=== PATIENT | female | born 1990 | race Caucasian/White ===

== ENCOUNTER 2016-06-19 17:59 | Inpatient (IN) | payer OTHER ==
[2016-06-19] MEDS ORDERED: MINERAL OIL 25 ML BOT ONE (18:56)
[2016-06-19] MEDS ORDERED: LACTATED RINGERS 1,000 ML ONE (18:56)
[2016-06-19] MEDS ORDERED: LIDOCAINE Viscous 2% 15 ML UDCUP ONE (18:56)
[2016-06-19] MEDS ORDERED: PUMP TUBING ONE (18:56)
[2016-06-19] MEDS ORDERED: OXYTOCIN 10 UNITS/ML VIAL ONE (18:56)
[2016-06-19] MEDS ORDERED: LIDOCAINE 1% (PRES FREE) 30 ML VIAL ONE (18:56)
[2016-06-19] MEDS ORDERED: IV START KIT ONE (18:56)
[2016-06-19] MEDS ORDERED: OXYTOCIN IN NS 500 ML IV ONE (18:57)
[2016-06-19] MEDS ORDERED: PENICILLIN G POTASSIUM 5 MMU VIAL ONE (18:57)
[2016-06-19] MEDS ORDERED: OXYTOCIN IN NS 334 ML IV PRN (18:58)
[2016-06-19] MEDS ORDERED: LACTATED RINGERS 1,000 ML IV PRN ×2 (18:58→20:07)
[2016-06-19] MEDS ORDERED: PENICILLIN G POTASSIUM 5 MMU in NS 0.9% (MINI-BAG PLUS) 100 ML IV ONE (19:00)
[2016-06-19] MEDS ORDERED: LACTATED RINGERS 1,000 ML IV SCH (19:00)
[2016-06-19 19:29] LABS: HEMATOCRIT 35.3 % (37.0-47.0); HEMOGLOBIN 11.2 gm/l (12.0-16.0); MEAN CELL VOLUME 83.6 fl (81.0-99.0); MEAN CORPUSCULAR HEMOGLOBIN 26.5 pg (27.0-31.0); MEAN CORPUSCULAR HGB CONC 31.7 g/dl (33.0-37.0); RED CELL DISTRIBUTION WIDTH 13.9 % (11.5-14.5)
[2016-06-19] MEDS ORDERED: OXYTOCIN IN NS 167 ML IV PRN (20:07)
[2016-06-19] MEDS ORDERED: MEASLES,MUMPS&RUBELLA VACCINE 0.5 ML VIAL SUB-Q V ONE (20:07)
[2016-06-19] MEDS ORDERED: SENNOSIDES 8.6 MG TABLET PO PRN (20:07)
[2016-06-19] MEDS ORDERED: MAGNESIUM HYDROXIDE 30 ML UDCUP PO PRN (20:07)
[2016-06-19] MEDS ORDERED: OXYCODONE HCL 5 MG TABLET PO PRN (20:07)
[2016-06-19] MEDS ORDERED: BENZOCAINE/MENTHOL 60 APPLIC/BOT TP PRN (20:07)
[2016-06-19] MEDS ORDERED: DIPHTH,PERTUSS(ACELL),TET VAC 0.5 ML VIAL IM V ONE (20:07)
[2016-06-19] MEDS ORDERED: DOCUSATE SODIUM 100 MG CAPSULE PO PRN (20:07)
[2016-06-19] MEDS ORDERED: IBUPROFEN 800 MG TABLET PO PRN (20:07)
[2016-06-19] MEDS ORDERED: LANOLIN 50 APPLIC/7G TUBE TP PRN (20:07)
[2016-06-19] MEDS ORDERED: CALCIUM CARBONATE 500 MG TAB.CHEW PO PRN (20:07)
[2016-06-19] MEDS ORDERED: OXYCODONE/ACETAMINOPHEN 5/325 MG TABLET PO PRN (20:07)
[2016-06-19] MEDS ORDERED: ACETAMINOPHEN 325 MG TABLET PO PRN (20:07)
--- NOTE | 2016-06-19 21:17 | PCMDEL ---
Delivery Note - Labor 1st stage (hr/min):: [id number] 2nd stage (hr/min):: 5min 3rd stage (hr/min):: 6min Total (hr/min):: [id number] Pushed (hr/min):: for about 3 contrx - Delivery Delivery (Date): 06/19/16 Delivery (Time): 19:39 Infant Gender: Male Weight: 8 lb 9 oz Length: 1 ft 9 in Presentation: Cephalic Position: OA Umbilical Cord: 3 Vessel Delayed Cord Clamping:: 2-3 min 1 Minute Total: 9 5 Minute Total: 9 Placenta:: complete EBL:: 200cc Perineum:: intact Suture:: none Anesthesia/Meds:: none Length ROM:: minutes Comments:: Pt had a strong urge to push shortly after AROM. Vretex came to quickly. Large amount clear fluid. Vertex delivered direct OA then restituted to LESLIE; right shoulder delivered first then baby was out, placed on maternal abdomen, dried and evaluated. He had excellent tone and cry. After FoB cut the cord, Valorie had some cramping and placenta delivered easily, followed by membranes. No tears. EBL minimal.
--- NOTE | 2016-06-19 21:31 | PCMAN ---
OB Admission Note - History : 3 Term: 2 : 0 Abortions (S&E): 0 Livin EDC:: 06/21/16 Gestational Age (weeks): 39 Days (#/7): 5 Admit Cervical Dilation:: 8-9 per global project manager Cervical Effacement (%):: 100 Admit Station:: -2 Admit Presentaton:: cephalic Membrane Status: Bulging Membranes Comment:: AROM performed on my first exam Labor Onset (Date): 06/19/16 Labor Onset (Time): 16:00 Contractions: Yes Contraction Frequency:: q2-3min Heart Rate:: 120 (category 1) Status:: good EFW:: 7-8lbs Summary of Course:: Uncomplicated . Normal Verify, 46 XY Pt admitted in advanced active labor. One dose of PCN infused prior to AROM and delivery. - Labs Blood Type: O (+) positive Hct/Hgb:: 10.4 Rubella Status: Immune GBS Status: Positive Abnormal Labs: None Other Labs:: 1HGTT 140, HgbA1c 5.2%
[2016-06-19] MEDS ORDERED: PENICILLIN G 3 MIL UNIT PREMIX 3 MMU in Premix (D5W) 50 ml 1 EACH IV SCH (23:00)
[2016-06-20 00:07] VITALS: BMI 25.3
[2016-06-20 06:31] LABS: HEMOGLOBIN 9.7 gm/l (12.0-16.0)
--- NOTE | 2016-06-20 10:56 | PDOC39B ---
Hospital Course: ADMIT DATE: 06/19/16 DISCHARGE DATE: 06/20/16 ADMISSION DIAGNOSES: Active labor with imminent PROCEDURES: Spontaneous vaginal delivery HISTORY OF PRESENT ILLNESS: 25 year old G3 T2 L2 at 39 weeks 5 days presenting with active labor, GBS positive. HOSPITAL COURSE: The patient was admitted and given 1 dose of IV PCN. [facility], and delivery followed shortly thereafter. Mother and baby "Donal" have done well in period. Pt is requesting discharge home today. By day of discharge the patient is ambulating, eating, voiding, and passing flatus without difficulty. Pain is controlled and lochia is appropriate. She is . - Physical Exam Vital Signs: Temp Pulse Resp BP Pulse Ox 98.0 F 83 16 117/60 06/20/16 07:56 06/20/16 07:56 06/20/16 07:56 06/20/16 07:56 General: Afebrile Psych/Mental Status: Mood/Affect Appropriate Neurological: Alert, Normal Speech Lungs: Clear to Auscultation Bilaterally Cardiovascular: Regular Rate and Rhythm Fundus: Firm Abdomen: Normal Bowel Sounds Genitourinary: Normal Female Genitalia Lochia: Light Skin: Normal Color, Warm - Discharge Diagnosis (1) (normal spontaneous vaginal delivery) Status: AcuteAssessment/Plan: Pt had a rapid and uncomplicated vaginal . - Discharge Plan Condition: Good Disposition: Home Prescriptions: Ibuprofen [IBUPROFEN 800 MG TABLET (SHF)] 800 mg PO Q6H PRN #100 PRN Reason: Pain (Mild) Oxycodone HCl/Acetaminophen [PERCOCET 5/325 MG TABLET (SHF)] 1 - 2 tab PO Q4H PRN #14 PRN Reason: Pain (Moderate)
[2016-06-20 15:00] VITALS: BP 110/60
== END 2016-06-20 19:05 | disposition home or self-care (01) | DRG 775 ==
LOC: FBCOUT 17:59 → FBC 18:02 → FBCOUT 19:00 → FBC 19:00
PROVIDERS: ADMIT Obstetrics & Gynecology; ATTEND Obstetrics & Gynecology
PROC: 10E0XZZ Delivery of Products of Conception, External Approach (ICD-10-PCS; principal; 2016-06-19)
PROC: 10907ZC Drainage of Amniotic Fluid, Therapeutic from Products of Conception, Via Natural or Artificial Opening (ICD-10-PCS; 2016-06-19)
DX: O62.3 Precipitate labor (principal); O99.824 Streptococcus B carrier state complicating childbirth; Z3A.39 39 weeks gestation of pregnancy; Z37.0 Single live birth